=== PATIENT | female | born 2000 | race Two or more races ===

== ENCOUNTER → 2018-08-01 | Emergency (ER) | payer OTHER ==
[~2018-08-01] VITALS: Ht 160 cm; Wt 53.1 kg
== END | disposition left against medical advice (07) ==
LOC: ER 23:01
DX: Z53.20 Procedure and treatment not carried out because of patient's decision for unspecified reasons (principal)

== ENCOUNTER 2018-08-04 10:03 | Emergency (ER) | payer OTHER ==
[~2018-08-04] VITALS: Ht 160 cm; Wt 52.2 kg
== END 2018-08-04 14:23 | disposition home or self-care (01) ==
LOC: ER 10:03
DX: R07.89 Other chest pain (principal)